=== PATIENT | female | born 1990 | race Caucasian/White ===

== ENCOUNTER 2024-04-29 18:19 | Emergency (ER) | payer SELFPAY ==
[2024-04-29 18:34] VITALS: BP 144/96; PULSE 74; RESP 20; TEMP 37.2; O2SAT 100; BMI 24.7
--- NOTE | 2024-04-29 18:37 | ED.GENADULT ---
HPI - General Adult General Chief complaint: General Medical Stated complaint: personal Related Data Allergies Allergy/AdvReac Type Severity Reaction Status Date / Time shellfish derived Allergy Severe RASH, Unverified 04/29/24 18:39 [SHELLFISH DERIVED] ANAPHYLAXIS PMFSH Social History Social History Advance Directives: No Advance Directives Information Provided: No Do you have a plan to hurt others: No Plan Physical Exam ED Vital Signs: Vital Signs - 24 hr 04/29/24 18:34 Temperature 98.9 F Pulse Rate 74 Respiratory Rate 20 Blood Pressure 144/96 H Pulse Oximetry 100 Oxygen Delivery Method Room Air BMI result Body Mass Index 24.7 Course Course Course Narrative: This is a Rapid Medical Examination (RME) performed by Pancho Paul PA-C in triage. Full HPI, ROS, assessment and treatment plan per primary provider in the Main ED. 34 yo female here for evaluation of hemorrhoids x3 days. reports worsening pain since running a 1/2 marathon 2 days ago. pain worse w/ sitting. admits to straining with BMs and assoc bright red blood on toilet paper after BMs. + area not examined in triage room d/t privacy concerns. Plan: exam in main ED Reevaluation(s) Reevaluation #1: Patient left the emergency department before myself or any of the other clinicians could review or explain physical exam findings, test results, need or lack there of for additional testing, treatment options, or a treatment plan. Discharge Plan Discharge Clinical Impression: Acute hemorrhoid Patient Disposition: Left W/O Completing Treatment Discharge Date/Time: 04/29/24 21:07
== END 2024-04-29 21:07 | disposition left against medical advice (07) ==
LOC: HO.ED 21:04
PROVIDERS: Emergency Provider Emergency Medicine
DX: K64.8 Other hemorrhoids (principal)
CPT/HCPCS: 99281

== ENCOUNTER 2024-11-21 02:25 | Emergency (ER) | payer OTHER, SELFPAY | END 2024-11-21 04:13 | disposition home or self-care (01) | PROVIDERS: Emergency Provider Emergency Medicine | DX: H92.02 Otalgia, left ear (principal); R09.A9 Foreign body sensation, other site ==